=== PATIENT | female | born 1985 | race American Indian/Alaskan Native ===

== ENCOUNTER 2017-01-06 13:44 | Emergency (ER) | payer BC, MEDICAID ==
[2017-01-06 14:36] VITALS: BP 125/79
--- NOTE | 2017-01-06 15:39 | Emergency Department Report ---
Entered by EDGAR WATERMAN, acting as scribe for MICHAEL JOSE PA. - General Chief complaint: Skin/Abscess/Foreign Body Stated complaint: NIPPLE INFECTION Time Seen by Provider: 01/06/17 14:53 Source: patient Mode of arrival: Ambulatory Limitations: No Limitations - History of Present Illness Initial comments: 31 year old female a PMHx of asthma presents to the ED c/o infected bilateral nipple piercings that began 1 week ago. Patient states that she got both nipples pierced in September 2016. Associated symptoms include pain around affected area, swelling, bleeding, pus drainage and fever, but she denies nausea , vomiting, SOB, and abdominal pain. Patient states her highest fever was a 101. Notes applying salt water compressions with some relief. LMP 12/10/2016. NKDA. HERRING complaint: other (infected bilateral nipple piercings) Onset/Timin -: week(s) Tetanus Up to Date: unsure Location: chest (bilateral nipples) Quality: aching Consistency: constant Improves with: none (applied salt water compressions with no relief) Worsens with: none Context: other (bilateral nipples pierced in September 2016) Associated symptoms: denies other symptoms, fever, other (chest pain, swelling, bleeding, and purulent drainage) Treatments Prior to Arrival: other (salt water compressions) - Related Data Previous Rx's Medication Instructions Recorded Last Taken Type HYDROcodone/APAP 5-325 [[place] 1 - 2 each PO Q6HR PRN #14 tablet 11/04/14 Unknown Rx 5-325 mg TAB] metroNIDAZOLE [Flagyl] 500 mg PO QID #40 tablet 11/04/14 Unknown Rx Ketorolac [Toradol] 10 mg PO Q6H PRN #20 tablet 04/18/16 Unknown Rx predniSONE [Deltasone] 60 mg PO QDAY #7 tab 07/28/16 Unknown Rx Cephalexin [Keflex] 500 mg PO QID #20 cap 01/06/17 Unknown Rx traMADol [Ultram 50 MG tab] 50 mg PO Q4HR PRN #14 tablet 01/06/17 Unknown Rx Allergies Allergy/AdvReac Type Severity Reaction Status Date / Time No Known Allergies Allergy Unverified 09/10/13 03:26 Abscess Boil HPI - HPI Chief Complaint: Skin/Abscess/Foreign Body Stated Complaint: NIPPLE INFECTION Time Seen by Provider: 01/06/17 14:53 Duration: 1 Week Location: Chest (bilateral nipples) History: Yes Fever, Yes Pain, Yes Purulent Drainage, No Numbness, No Foreign Body, No Previous History, No Insect Bite Home Medications: Previous Rx's Medication Instructions Recorded Last Taken Type HYDROcodone/APAP 5-325 [[place] 1 - 2 each PO Q6HR PRN #14 tablet 11/04/14 Unknown Rx 5-325 mg TAB] metroNIDAZOLE [Flagyl] 500 mg PO QID #40 tablet 11/04/14 Unknown Rx Ketorolac [Toradol] 10 mg PO Q6H PRN #20 tablet 04/18/16 Unknown Rx predniSONE [Deltasone] 60 mg PO QDAY #7 tab 07/28/16 Unknown Rx Cephalexin [Keflex] 500 mg PO QID #20 cap 01/06/17 Unknown Rx traMADol [Ultram 50 MG tab] 50 mg PO Q4HR PRN #14 tablet 01/06/17 Unknown Rx Allergies/Adverse Reactions: Allergies Allergy/AdvReac Type Severity Reaction Status Date / Time No Known Allergies Allergy Unverified 09/10/13 03:26 ED Review of Systems Comment: All other systems reviewed and negative Constitutional: fever. denies: chills, other (tingling) Respiratory: denies: cough, shortness of breath Cardiovascular: denies: chest pain, palpitations Gastrointestinal: denies: abdominal pain, nausea, vomiting Skin: other (bilateral nipple swelling with bleeding and purulent drainage). denies: rash ED Past Medical Hx - Past Medical History Hx Diabetes: (Being tested for diabetes) Hx Asthma: Yes Additional medical history: Urticaria (unknown etiology). 6 pregnancies with 4 miscarriage - Social History Smoking Status: Never Smoker Substance Use Type: None - Medications Home Medications: Home Medications Medication Instructions Recorded Confirmed Last Taken Type HYDROcodone/APAP 5-325 [[place] 1 - 2 each PO Q6HR PRN #14 tablet 11/04/14 Unknown Rx 5-325 mg TAB] metroNIDAZOLE [Flagyl] 500 mg PO QID #40 tablet 11/04/14 Unknown Rx Ketorolac [Toradol] 10 mg PO Q6H PRN #20 tablet 04/18/16 Unknown Rx predniSONE [Deltasone] 60 mg PO QDAY #7 tab 07/28/16 Unknown Rx Cephalexin [Keflex] 500 mg PO QID #20 cap 01/06/17 Unknown Rx traMADol [Ultram 50 MG tab] 50 mg PO Q4HR PRN #14 tablet 01/06/17 Unknown Rx ED Physical Exam - General Limitations: No Limitations General appearance: alert, in no apparent distress - Head Head exam: Present: atraumatic, normocephalic - Eye Eye exam: Present: normal appearance, EOMI Pupils: Present: normal accommodation - ENT ENT exam: Present: normal exam, mucous membranes moist - Neck Neck exam: Present: normal inspection, full ROM - Respiratory Respiratory exam: Present: normal lung sounds bilaterally. Absent: respiratory distress, wheezes, rales, rhonchi, stridor - Cardiovascular Cardiovascular Exam: Present: regular rate, normal rhythm. Absent: systolic murmur, diastolic murmur, rubs, gallop - GI/Abdominal GI/Abdominal exam: Present: soft. Absent: distended, tenderness, guarding, rebound - Extremities Exam Extremities exam: Present: normal inspection, full ROM - Back Exam Back exam: Present: normal inspection, full ROM - Neurological Exam Neurological exam: Present: alert, oriented X3 - Psychiatric Psychiatric exam: Present: normal affect, normal mood - Skin Skin exam: Present: warm, dry, intact, other (bilateral nipple piercings present with no erythema, cellulitis, and purulent drainage). Absent: rash - Other Other exam information: BREAST: bilateral nipple piercings present with minimal erythema and edema. No surrounding cellulitis or purulent drainage noted. No nipple drainage or bleeding noted. ED Course Vital Signs 01/06/17 14:31 Temperature 98.4 F Pulse Rate 69 Respiratory 18 Rate Blood Pressure 125/79 O2 Sat by Pulse 100 Oximetry ED Medical Decision Making - Lab Data Vital Signs 01/06/17 14:31 Temperature 98.4 F Pulse Rate 69 Respiratory 18 Rate Blood Pressure 125/79 O2 Sat by Pulse 100 Oximetry - Medical Decision Making 31-year-old female presents today with bilateral nipple piercing that seem to be infected. A referral for [facility] has been provided. Patient is in no acute distress at this time. She will be discharged home and is encouraged to follow up with a primary care provider. She will be sent home on Keflex and tramadol and is encouraged to return to the emergency room for any worsening symptoms. ED Disposition Clinical Impression: Infected pierced nipple Disposition: DISCHARGED TO HOME OR SELFCARE Is pt being admited?: No Does the pt Need Aspirin: No Condition: Stable Instructions: Cellulitis (ED) Additional Instructions: Follow-up with primary care provider. Return to the emergency department if symptoms worsen. Prescriptions: Cephalexin [Keflex] 500 mg PO QID #20 cap traMADol [Ultram 50 MG tab] 50 mg PO Q4HR PRN #14 tablet PRN Reason: Pain Referrals: PRIMARY CARE, [Primary Care Provider] - 3-5 Days NANNETTE DIAZ MD [Staff Physician] - 3-5 Days Forms: Work/School Release Form(ED) Time of Disposition: 15:33 This documentation as recorded by the GUEVARA grady JASMINE,accurately reflects the service I personally performed and the decisions made by DAMON lovett NATASHA, PA.
== END 2017-01-06 15:49 | disposition home or self-care (01) ==
LOC: ED 13:44
DX: N61.0 Mastitis without abscess (principal); J45.909 Unspecified asthma, uncomplicated
CPT/HCPCS: 99282

== ENCOUNTER 2017-03-19 10:51 | Emergency (ER) | payer BC ==
[2017-03-19 12:23] LABS: Basophils % (Auto) 0.1 % (0.0-1.8); Hematocrit 35.9 % (30.3-42.9); Hemoglobin 11.6 gm/dl (10.1-14.3); Mean Corpuscular HGB Conc 32 % (30-34); Mean Corpuscular Hemoglobin 27 pg (28-32); Mean Corpuscular Volume 83 fl (79-97); Platelet Count 267 K/mm3 (140-440); Red Blood Count 4.32 M/mm3 (3.65-5.03); Red Cell Distribution Width 14.6 % (13.2-15.2); White Blood Count 6.4 K/mm3 (4.5-11.0)
[2017-03-19 13:01] LABS: Anion Gap 16 mmol/L; BUN/Creatinine Ratio 8.75; Blood Urea Nitrogen 7 mg/dL (7-17); Calcium 9.4 mg/dL (8.4-10.2); Carbon Dioxide 22 mmol/L (22-30); Chloride 104.7 mmol/L (98-107); Glucose 119 mg/dL (65-100); Potassium 4.1 mmol/L (3.6-5.0); Sodium 139 mmol/L (137-145)
[2017-03-19] MEDS ORDERED: PEPCID PO ONE (16:32)
[2017-03-19] MEDS ORDERED: ALUM-MAG HYDROX-SIMETH 200-200-20MG/5ML PO ONE (16:32)
[2017-03-19] MEDS ORDERED: TORADOL IM ONE (16:32)
--- NOTE | 2017-03-19 16:34 | Emergency Department Report ---
ED Chest Pain HPI - General Chief Complaint: Chest Pain Stated Complaint: SOB NAUSEA LIGHT HEADED Time Seen by Provider: 03/19/17 16:21 Source: patient, RN notes reviewed, old records reviewed Mode of arrival: Ambulatory Limitations: No Limitations - History of Present Illness Initial Comments: This is a 31-year-old female. I have evaluated her in the past. She denies chronic medical conditions. She reports that she is not . The patient presents to the ER with 3 days of subxiphoid and substernal chest pressure and pain. The pain is achy and sharp. It does not radiate to the back , arms and neck. It is associated with nausea and shortness of breath. The patient also describes lightheadedness. There is no vomiting, there is no diaphoresis. There is no leg pain. There is no leg swelling. No recent trips greater than 4 hours. No recent hospital admissions. No hemoptysis or hematemesis. The shortness of breath increases when she lays in a supine position. It is not pleuritic. The patient reports that she has an Implanon control patch in her left upper extremity. MD Complaint: chest pain -: Gradual, days(s) Pain Location: substernal Pain Radiation: none Severity: moderate Quality: aching Consistency: intermittent Improves With: rest Worsens With: palpation re: nausea, dyspnea Other Symptoms: denies: cough Treatments Prior to Arrival: none Aspirin use within the Past 7 Days: (0) No - Related Data On Oral Contraceptives: No Previous Rx's Medication Instructions Recorded Last Taken Type HYDROcodone/APAP 5-325 [[place] 1 - 2 each PO Q6HR PRN #14 tablet 11/04/14 Unknown Rx 5-325 mg TAB] metroNIDAZOLE [Flagyl] 500 mg PO QID #40 tablet 11/04/14 Unknown Rx Ketorolac [Toradol] 10 mg PO Q6H PRN #20 tablet 04/18/16 Unknown Rx predniSONE [Deltasone] 60 mg PO QDAY #7 tab 07/28/16 Unknown Rx Cephalexin [Keflex] 500 mg PO QID #20 cap 01/06/17 Unknown Rx traMADol [Ultram 50 MG tab] 50 mg PO Q4HR PRN #14 tablet 01/06/17 Unknown Rx EPINEPHrine [Epipen 2-Abran] 0.3 mg IM DAILY PRN #2 ml 03/19/17 Unknown Rx Ibuprofen [Motrin] 600 mg PO Q8H PRN #30 tablet 03/19/17 Unknown Rx Allergies Allergy/AdvReac Type Severity Reaction Status Date / Time No Known Allergies Allergy Verified 03/19/17 11:36 Heart Score - HEART Score History: Moderately suspicious EKG: Normal Age: < 45 Risk factors: No known risk factors Troponin: < normal limit HEART Score: 1 - Critical Actions Critical Actions: 0-3 pts:0.9-1.7%risk of adverse cardiac event.Candidate for discharge ED Review of Systems ROS: Stated complaint: SOB NAUSEA LIGHT HEADED Other details as noted in HPI Constitutional: denies: fever, malaise Eyes: denies: vision change ENT: denies: epistaxis Respiratory: shortness of breath Cardiovascular: chest pain Gastrointestinal: denies: vomiting Genitourinary: as per HPI. denies: dysuria Musculoskeletal: as per HPI. denies: back pain Skin: denies: lesions Neurological: denies: headache, weakness Psychiatric: denies: anxiety ED Past Medical Hx - Past Medical History Hx Diabetes: (Being tested for diabetes) Hx Asthma: Yes Additional medical history: Urticaria (unknown etiology). 6 pregnancies with 4 miscarriage - Social History Smoking Status: Never Smoker Substance Use Type: None - Medications Home Medications: Home Medications Medication Instructions Recorded Confirmed Last Taken Type HYDROcodone/APAP 5-325 [[place] 1 - 2 each PO Q6HR PRN #14 tablet 11/04/14 Unknown Rx 5-325 mg TAB] metroNIDAZOLE [Flagyl] 500 mg PO QID #40 tablet 11/04/14 Unknown Rx Ketorolac [Toradol] 10 mg PO Q6H PRN #20 tablet 04/18/16 Unknown Rx predniSONE [Deltasone] 60 mg PO QDAY #7 tab 07/28/16 Unknown Rx Cephalexin [Keflex] 500 mg PO QID #20 cap 01/06/17 Unknown Rx traMADol [Ultram 50 MG tab] 50 mg PO Q4HR PRN #14 tablet 01/06/17 Unknown Rx EPINEPHrine [Epipen 2-Abran] 0.3 mg IM DAILY PRN #2 ml 03/19/17 Unknown Rx Ibuprofen [Motrin] 600 mg PO Q8H PRN #30 tablet 03/19/17 Unknown Rx ED Physical Exam - General Limitations: No Limitations General appearance: alert, in no apparent distress - Head Head exam: Present: atraumatic, normocephalic - Eye Eye exam: Present: normal appearance, EOMI. Absent: nystagmus - ENT ENT exam: Present: normal exam, normal orophraynx, mucous membranes moist, normal external ear exam - Neck Neck exam: Present: normal inspection, full ROM. Absent: tenderness, meningismus - Respiratory Respiratory exam: Present: normal lung sounds bilaterally, chest wall tenderness , other (there is reproducible anterior chest wall tenderness. The bilateral breast exam is within normal limits and they are nontender. During the breast examination, I am escorted by ER nurse Mercedes Pemberton). Absent: respiratory distress, wheezes, rales, rhonchi, stridor - Cardiovascular Cardiovascular Exam: Present: regular rate, normal rhythm, normal heart sounds. Absent: systolic murmur, diastolic murmur, rubs, gallop - GI/Abdominal GI/Abdominal exam: Present: soft, normal bowel sounds. Absent: distended, tenderness, guarding, rebound, rigid, pulsatile mass - Extremities Exam Extremities exam: Present: normal inspection, full ROM, normal capillary refill. Absent: tenderness, pedal edema, joint swelling, calf tenderness - Back Exam Back exam: Present: normal inspection, full ROM. Absent: tenderness, CVA tenderness (R), CVA tenderness (L), muscle spasm, paraspinal tenderness, vertebral tenderness - Neurological Exam Neurological exam: Present: alert, oriented X3, normal gait, other (Extraocular movements intact. Tongue midline. No facial droop. Facial sensation intact to light touch in the V1, V2, V3 distribution bilaterally. 5 and 5 strength in 4 extremities.. Sensation is intact to light touch in 4 extremities.). Absent : motor sensory deficit - Psychiatric Psychiatric exam: Present: normal affect, normal mood - Skin Skin exam: Present: warm, dry, intact, normal color. Absent: rash ED Course Vital Signs 03/19/17 03/19/17 03/19/17 11:36 17:07 17:56 Temperature 98.7 F Pulse Rate 70 67 Respiratory 18 20 18 Rate Blood Pressure 131/91 Blood Pressure 147/81 [Left] O2 Sat by Pulse 100 100 Oximetry - Reevaluation(s) Reevaluation #1: 03/19/17 17:48 Differential diagnosis: Pneumonia, pericarditis, pleural effusion, pericardial effusion, pulmonary embolus, acute coronary syndrome, costochondritis Assessment and plan: 31-year-old female with chest pain that is reproducible but also associated with shortness of breath, and an indwelling Implanon patch. Low risk by HERBERTH score, low risk by heart score, however d-dimer is elevated, in spite of patient being perc negative, therefore, a CT scan of the chest is ordered to exclude pulmonary embolus. EKG is unchanged 2, and appears to be unchanged from baseline. Assuming negative CAT scan, I believe the patient is adequate to follow-up with an outpatient primary care doctor or audio installer for evaluation of her chest pain. She did feel improved after pain medication was administered. Reevaluation #2: 03/19/17 18:10 CT scan of the chest is negative for pulmonary embolus, but the pulmonary trunk is enlarged, suggesting pulmonary hypertension. Patient also found to be slightly hypertensive. The patient will be referred to outpatient cardiology. Return precautions are reviewed. Of note, the patient also described that she felt like her face was swollen prior to arrival, but on my evaluation in the ER, there is no facial swelling, redness, pus or streaking, there is no stridor or dysphonia, and her skin exam is unremarkable without any evidence of rash or urticaria. Therefore, I don't believe she requires Benadryl or Pepcid at this time, but I will refill her epinephrine pen prescription. 03/19/17 18:10 03/19/17 18:11 HERBERTH score - Herberth Score Age > 65: (0) No Aspirin use within the Past 7 Days: (0) No 3 or more CAD Risk Factors: (0) No 2 or more Angina events in past 24 hrs: (0) No Known CAD with more than 50% Stenosis: (0) No Elevated Cardiac Markers: (0) No ST Deviation Greater than 0.5mm: (0) No HERBERTH Score: 0 ED Medical Decision Making - Lab Data Result diagrams: 03/19/17 11:56 03/19/17 11:56 Vital Signs (72 hours) 03/19/17 03/19/17 11:36 17:07 Temperature 98.7 F Pulse Rate 70 Respiratory 18 20 Rate Blood Pressure 131/91 O2 Sat by Pulse 100 Oximetry Lab Results 03/19/17 03/19/17 03/19/17 Range/Units 11:56 11:56 14:46 WBC 6.4 (4.5-11.0) K/mm3 RBC 4.32 (3.65-5.03) M/mm3 Hgb 11.6 (10.1-14.3) gm/dl Hct 35.9 (30.3-42.9) % MCV 83 (79-97) fl MCH 27 L (28-32) pg MCHC 32 (30-34) % RDW 14.6 (13.2-15.2) % Plt Count 267 (140-440) K/mm3 Lymph % (Auto) 26.2 (13.4-35.0) % [place] % (Auto) 5.1 (0.0-7.3) % Eos % (Auto) 0.0 (0.0-4.3) % Baso % (Auto) 0.1 (0.0-1.8) % Lymph # 1.7 (1.2-5.4) K/mm3 [place] # 0.3 (0.0-0.8) K/mm3 Eos # 0.0 (0.0-0.4) K/mm3 Baso # 0.0 (0.0-0.1) K/mm3 Seg Neutrophils % 68.6 (40.0-70.0) % Seg Neutrophils # 4.4 (1.8-7.7) K/mm3 PT (12.2-14.9) Sec. INR (0.87-1.13) D-Dimer (0-234) ng/mlDDU Sodium 139 (137-145) mmol/L Potassium 4.1 (3.6-5.0) mmol/L Chloride 104.7 (98-107) mmol/L Carbon Dioxide 22 (22-30) mmol/L Anion Gap 16 mmol/L BUN 7 (7-17) mg/dL Creatinine 0.8 (0.7-1.2) mg/dL Estimated GFR > 60 ml/min BUN/Creatinine Ratio 8.75 % Glucose 119 H (65-100) mg/dL Calcium 9.4 (8.4-10.2) mg/dL Troponin T < 0.010 < 0.010 (0.00-0.029) ng/mL HCG, Quant (0-4) mIU/mL 0703/19/17 03/19/17 Range/Units 16:42 16:42 16:42 WBC (4.5-11.0) K/mm3 RBC (3.65-5.03) M/mm3 Hgb (10.1-14.3) gm/dl Hct (30.3-42.9) % MCV (79-97) fl MCH (28-32) pg MCHC (30-34) % RDW (13.2-15.2) % Plt Count (140-440) K/mm3 Lymph % (Auto) (13.4-35.0) % [place] % (Auto) (0.0-7.3) % Eos % (Auto) (0.0-4.3) % Baso % (Auto) (0.0-1.8) % Lymph # (1.2-5.4) K/mm3 [place] # (0.0-0.8) K/mm3 Eos # (0.0-0.4) K/mm3 Baso # (0.0-0.1) K/mm3 Seg Neutrophils % (40.0-70.0) % Seg Neutrophils # (1.8-7.7) K/mm3 PT 12.9 (12.2-14.9) Sec. INR 0.98 (0.87-1.13) D-Dimer 982.33 H (0-234) ng/mlDDU Sodium (137-145) mmol/L Potassium (3.6-5.0) mmol/L Chloride (98-107) mmol/L Carbon Dioxide (22-30) mmol/L Anion Gap mmol/L BUN (7-17) mg/dL Creatinine (0.7-1.2) mg/dL Estimated GFR ml/min BUN/Creatinine Ratio % Glucose (65-100) mg/dL Calcium (8.4-10.2) mg/dL Troponin T < 0.010 (0.00-0.029) ng/mL HCG, Quant < 2 (0-4) mIU/mL - EKG Data EKG shows normal: sinus rhythm Rate: normal - EKG Data When compared to previous EKG there are: no significant change Interpretation: no acute changes 03/19/17 17:52 EKG #1 demonstrates normal sinus, 72 bpm, QTC within normal limits, normal axis , normal intervals, T-wave inversion in lead 3, abnormal EKG, not morphologically consistent with STEMI, appears unchanged when compared to prior from 07/28/2016. EKG #2 demonstrates normal sinus bradycardia, 58 bpm, normal intervals, normal axis, persistent T wave inversion in lead 3, not morphologically consistent with systemic - Radiology Data Radiology results: report reviewed, image reviewed interpreted by me: X-ray of the chest is negative for acute disease Critical care attestation.: If time is entered above; I have spent that time in minutes in the direct care of this critically ill patient, excluding procedure time. ED Disposition Clinical Impression: Chest pain Disposition: DC-01 TO HOME OR SELFCARE Is pt being admited?: No Does the pt Need Aspirin: No Condition: Stable Instructions: Chest Pain (ED) Additional Instructions: Take the ibuprofen as needed for pain. Use the epinephrine pen and only if you develop inability to speak, inability to breathe. Laboratory studies were unremarkable. CT scan of the chest suggested that the blood pressure in the lungs might be elevated, a condition known as pulmonary hypertension. Please follow-up with either the outpatient audio installer within the next week. Return to the ER right away with new pain, worsened pain, migration of pain, fevers, chills, confusion, chest pain, shortness of breath, intractable nausea or vomiting, inability to tolerate liquid feeds. Prescriptions: EPINEPHrine [Epipen 2-Abran] 0.3 mg IM DAILY PRN #2 ml PRN Reason: Allergic Reaction Ibuprofen [Motrin] 600 mg PO Q8H PRN #30 tablet PRN Reason: Pain Referrals: PRIMARY CARE, [Primary Care Provider] - 3-5 Days HANSEL CROW MD [Staff Physician] - 3-5 Days ÁNGEL TIMMONS MD [Staff Physician] - 3-5 Days
[2017-03-19 17:13] LABS: INR 0.98 (0.87-1.13)
[2017-03-19] MEDS ORDERED: NACL ONE (17:19)
[2017-03-19] MEDS ORDERED: CARAFATE PO ONE (17:30)
[2017-03-19 17:57] VITALS: BP 147/81
--- NOTE | 2017-03-19 18:04 | Cat Scan Report ---
FINAL REPORT EXAM: CT ANGIO CHEST HISTORY: cp sob TECHNIQUE: CT chest CT angiogram with reconstructions PRIORS: None. FINDINGS: There is no evidence of filling defect within the central pulmonary vasculature to suggest the presence of acute pulmonary embolus. No evidence of mediastinal pathologic lymph node enlargement There is enlargement of the pulmonary trunk which measures 3.5 centimeters in transverse diameter. The thoracic aorta is normal in caliber No focal pulmonary infiltrate identified. No pleural fluid collection seen. No acute pulmonary abnormality noted. Visualized portion of the upper abdomen demonstrates no acute change. IMPRESSION: Enlargement of the pulmonary trunk which may reflect underlying pulmonary hypertension No evidence for acute pulmonary embolus
--- NOTE | 2017-03-20 10:13 | XRay Report ---
ROUTINE CHEST, TWO VIEWS: HISTORY: chest pain. The trachea, heart, mediastinal contour, lung morfin and bony thorax are unremarkable. IMPRESSION: Unremarkable chest x-ray.
== END 2017-03-19 18:30 | disposition home or self-care (01) ==
LOC: ED 10:51
DX: R07.9 Chest pain, unspecified (principal); J45.909 Unspecified asthma, uncomplicated
CPT/HCPCS: 36415; 71020; 71275; 80048; 84484; 84702; 85025; 85379; 85610; 93005; 93010; 96372; 99285; J1885; Q9967

== ENCOUNTER 2017-03-24 16:48 | Emergency (ER) | payer BC | END 2017-03-24 17:06 | disposition left against medical advice (07) | LOC: ED 16:48 | DX: R06.02 Shortness of breath (principal); R11.0 Nausea; R07.9 Chest pain, unspecified; Z53.21 Procedure and treatment not carried out due to patient leaving prior to being seen by health care provider ==

== ENCOUNTER 2018-04-23 09:56 | Emergency (ER) | payer SELFPAY ==
[2018-04-23] MEDS ORDERED: ADRENALIN SUB-Q ONE (10:12)
[2018-04-23] MEDS ORDERED: NACL 0.9% 1000 ML 1,000 ML IV ONE (10:12)
[2018-04-23] MEDS ORDERED: SOLU-Medrol IV ONE (10:13)
[2018-04-23] MEDS ORDERED: BENADRYL IV ONE (10:14)
[2018-04-23] MEDS ORDERED: PEPCID IV ONE (10:14)
--- NOTE | 2018-04-23 10:19 | Emergency Department Report ---
ED Allergic Reaction HPI - General Chief complaint: Allergic Reaction Stated complaint: ANAPALAXISIS FLARE UP Time Seen by Provider: 04/23/18 10:09 Source: patient Mode of arrival: Ambulatory Limitations: No Limitations - History of Present Illness Initial Comments: Patient is 32 years old female with history of anaphylactic shock 3-4 years ago for which she required intubation. Patient presented to the ER complaining of the same symptoms that started last times with hives and swelling starting from the lower part of the body and extending caudally. Patient stated that she started having swelling in her lips and tongue but she denied any difficulty breathing or difficulty swallowing. MD Complaint: allergic reaction, hives, facial swelling -: This morning Exposure: unknown Symptoms: rash, itching, facial swelling, lip swelling Severity: moderate Treatment Prior to Arrival: none Previous Allergy History: prior ED visit(s), anaphylaxis, angioedema, intubation - Related Data Previous Rx's Medication Instructions Recorded Last Taken Type HYDROcodone/APAP 5-325 [[place] 1 - 2 each PO Q6HR PRN #14 tablet 11/04/14 Unknown Rx 5-325 mg TAB] metroNIDAZOLE [Flagyl] 500 mg PO QID #40 tablet 11/04/14 Unknown Rx Ketorolac [Toradol] 10 mg PO Q6H PRN #20 tablet 04/18/16 Unknown Rx predniSONE [Deltasone] 60 mg PO QDAY #7 tab 07/28/16 Unknown Rx cephALEXin [Keflex] 500 mg PO QID #20 cap 01/06/17 Unknown Rx traMADol [Ultram 50 MG tab] 50 mg PO Q4HR PRN #14 tablet 01/06/17 Unknown Rx EPINEPHrine [Epipen 2-Abran] 0.3 mg IM DAILY PRN #2 ml 03/19/17 Unknown Rx Ibuprofen [Motrin] 600 mg PO Q8H PRN #30 tablet 03/19/17 Unknown Rx Allergies Allergy/AdvReac Type Severity Reaction Status Date / Time No Known Allergies Allergy Verified 04/23/18 10:03 ED Review of Systems ROS: Stated complaint: ANAPALAXISIS FLARE UP Other details as noted in HPI Comment: All other systems reviewed and negative Constitutional: denies: chills, fever ENT: other (mild lower lip swelling). denies: ear pain, throat pain Respiratory: denies: cough, shortness of breath, SOB at rest, wheezing Cardiovascular: denies: chest pain, palpitations, dyspnea on exertion, orthopnea Gastrointestinal: denies: abdominal pain, nausea, vomiting Neurological: denies: headache, weakness, numbness, paresthesias, confusion, abnormal gait ED Past Medical Hx - Past Medical History Hx Diabetes: (Being tested for diabetes) Hx Asthma: Yes Additional medical history: Urticaria (unknown etiology). 6 pregnancies with 4 miscarriage - Social History Smoking Status: Never Smoker Substance Use Type: None - Medications Home Medications: Home Medications Medication Instructions Recorded Confirmed Last Taken Type HYDROcodone/APAP 5-325 [[place] 1 - 2 each PO Q6HR PRN #14 tablet 11/04/14 Unknown Rx 5-325 mg TAB] metroNIDAZOLE [Flagyl] 500 mg PO QID #40 tablet 11/04/14 Unknown Rx Ketorolac [Toradol] 10 mg PO Q6H PRN #20 tablet 04/18/16 Unknown Rx predniSONE [Deltasone] 60 mg PO QDAY #7 tab 07/28/16 Unknown Rx cephALEXin [Keflex] 500 mg PO QID #20 cap 01/06/17 Unknown Rx traMADol [Ultram 50 MG tab] 50 mg PO Q4HR PRN #14 tablet 01/06/17 Unknown Rx EPINEPHrine [Epipen 2-Abran] 0.3 mg IM DAILY PRN #2 ml 03/19/17 Unknown Rx Ibuprofen [Motrin] 600 mg PO Q8H PRN #30 tablet 03/19/17 Unknown Rx ED Physical Exam - General Limitations: No Limitations General appearance: alert, in no apparent distress, anxious - Head Head exam: Present: atraumatic, normocephalic, normal inspection - Eye Eye exam: Present: normal appearance, PERRL - ENT ENT exam: Present: mucous membranes moist, other (mild lower lip swelling) - Neck Neck exam: Present: normal inspection, full ROM. Absent: tenderness, meningismus, lymphadenopathy, thyromegaly - Respiratory Respiratory exam: Present: normal lung sounds bilaterally. Absent: respiratory distress, wheezes, rales, rhonchi, stridor, chest wall tenderness, accessory muscle use, decreased breath sounds, prolonged expiratory - Cardiovascular Cardiovascular Exam: Present: regular rate, normal rhythm, normal heart sounds - GI/Abdominal GI/Abdominal exam: Present: soft, normal bowel sounds. Absent: distended, tenderness, guarding, rebound, rigid, organomegaly, mass, bruit, pulsatile mass , hernia - Extremities Exam Extremities exam: Present: normal inspection, full ROM, normal capillary refill. Absent: tenderness, pedal edema, joint swelling, calf tenderness - Back Exam Back exam: Present: normal inspection, full ROM, rash noted. Absent: tenderness , CVA tenderness (R), CVA tenderness (L), muscle spasm, paraspinal tenderness, vertebral tenderness - Neurological Exam Neurological exam: Present: alert, oriented X3, CN II-XII intact, normal gait, reflexes normal - Skin Skin exam: Present: warm, intact, rash, erythema, urticaria ED Course Vital Signs 04/23/18 04/23/18 04/23/18 10:03 10:31 11:41 Temperature 98.7 F 98.1 F Pulse Rate 91 H 101 H 77 Respiratory 17 22 16 Rate Blood Pressure 154/94 Blood Pressure 117/72 [Right] O2 Sat by Pulse 99 100 100 Oximetry ED Medical Decision Making - Lab Data Result diagrams: 04/23/18 10:48 04/23/18 10:48 - Medical Decision Making I discussed the patient with Dr. Su, he agreed to admit the patient to medical service. Critical Care Time: Yes Critical care time in (mins) excluding proc time.: 30 Critical care attestation.: If time is entered above; I have spent that time in minutes in the direct care of this critically ill patient, excluding procedure time. ED Disposition Clinical Impression: Allergic reaction Disposition: OP ADMIT IP TO THIS HOSP Is pt being admited?: Yes Condition: Stable Referrals: PRIMARY CARE, [Primary Care Provider] - 3-5 Days
[2018-04-23 10:59] LABS: Basophils % (Auto) 0.1 % (0.0-1.8); Eosinophils % (Auto) 0.1 % (0.0-4.3); Hematocrit 35.2 % (30.3-42.9); Hemoglobin 11.3 gm/dl (10.1-14.3); Lymphocytes % (Auto) 28.2 % (13.4-35.0); Mean Corpuscular HGB Conc 32 % (30-34); Mean Corpuscular Hemoglobin 27 pg (28-32); Mean Corpuscular Volume 85 fl (79-97); Monocytes # (Auto) 0.5 K/mm3 (0.0-0.8); Monocytes % (Auto) 6.6 % (0.0-7.3); Platelet Count 312 K/mm3 (140-440); Red Blood Count 4.16 M/mm3 (3.65-5.03); Red Cell Distribution Width 15.2 % (13.2-15.2)
[2018-04-23 11:28] LABS: Alanine Aminotransferase 8 units/L (7-56); Albumin 3.9 g/dL (3.9-5); BUN/Creatinine Ratio 12; Blood Urea Nitrogen 7 mg/dL (7-17); Calcium 8.8 mg/dL (8.4-10.2); Hemolysis Index 3
--- NOTE | 2018-04-23 14:25 | History and Physical Report ---
History of Present Illness Chief complaint: I had a rash on my legs, but its better now History of present illness: 32 YO Female with Asthma, Atopic Reaction NOS presents to ED for evaluation. Pt seen and evaluated in ED and treated with EPI, as well as steroid therapy with normalization of symptoms. Pt medically optimized and back to usual state of health. Pt counseled. Pt instructed to returned to ED if persistent or worsening symptoms. Pt discharged home and instructed to f/u pcp as well as Allergy Medicine. Past History Past Medical History: other Past Surgical History: No surgical history, Other (reviewed) Social history: single. denies: smoking, alcohol abuse, prescription drug abuse Family history: no significant family history (reviewed) Medications and Allergies Allergies Allergy/AdvReac Type Severity Reaction Status Date / Time No Known Allergies Allergy Verified 04/23/18 10:03 Home Medications Medication Instructions Recorded Confirmed Last Taken Type HYDROcodone/APAP 5-325 [[place] 1 - 2 each PO Q6HR PRN #14 tablet 11/04/14 Unknown Rx 5-325 mg TAB] metroNIDAZOLE [Flagyl] 500 mg PO QID #40 tablet 11/04/14 Unknown Rx Ketorolac [Toradol] 10 mg PO Q6H PRN #20 tablet 04/18/16 Unknown Rx predniSONE [Deltasone] 60 mg PO QDAY #7 tab 07/28/16 Unknown Rx cephALEXin [Keflex] 500 mg PO QID #20 cap 01/06/17 Unknown Rx traMADol [Ultram 50 MG tab] 50 mg PO Q4HR PRN #14 tablet 01/06/17 Unknown Rx Ibuprofen [Motrin] 600 mg PO Q8H PRN #30 tablet 03/19/17 Unknown Rx EPINEPHrine [Epipen 2-Abran] 0.3 mg IM DAILY PRN #2 ml 04/23/18 Unknown Rx Prednisone [predniSONE 10 mg 10 mg PO .TAPER #1 tab.ds.pk 04/23/18 Unknown Rx (6-Day Pack, 21 Tabs)] Review of Systems Constitutional: no weight loss, no weight gain, no fever, no chills, no sweats Ears, nose, mouth and throat: no ear pain, no ear discharge, no tinnitis, no decreased hearing, no nose pain, no nasal congestion, no nasal discharge, no sinus pressure Breasts: no change in shape, no swelling Cardiovascular: no chest pain, no orthopnea, no palpitations, no rapid/ irregular heart beat, no edema, no syncope, no lightheadedness Respiratory: no cough, no cough with sputum, no excessive sputum, no hemoptysis , no shortness of breath, no dyspnea on exertion Gastrointestinal: no abdominal pain, no nausea, no vomiting, no diarrhea, no change in bowel habits Genitourinary Female: no pelvic pain, no flank pain, no menorrhagia, no dysuria , no urinary frequency, no urgency Rectal: no pain, no incontinence, no bleeding Musculoskeletal: no neck stiffness, no neck pain, no shooting arm pain, no arm numbness/tingling, no low back pain, no shooting leg pain, no leg numbness/ tingling, no redness of joints Integumentary: rash, no pruritis, no redness, no sores, no wounds, no jaundice, no boils Neurological: no head injury, no transient paralysis, no paralysis, no weakness , no parathesias, no numbness, no tingling, no seizures, no syncope Psychiatric: no anxiety, no memory loss, no change in sleep habits, no sleep disturbances, no insomnia, no hypersomnia Endocrine: no cold intolerance, no heat intolerance, no polyphagia, no excessive thirst, no polydipsia, no polyuria, no nocturia Hematologic/Lymphatic: no easy bruising, no easy bleeding, no lymphadenopathy, no lymphedema Allergic/Immunologic: urticaria, no allergic rhinitis, no wheezing, no persistent infections, no anaphylaxis, no angioedema, no gluten intolerance Exam - Constitutional Vitals: Temp Pulse Resp BP Pulse Ox 98.1 F 72 16 111/72 100 04/23/18 11:41 04/23/18 13:37 04/23/18 13:37 04/23/18 13:37 04/23/18 13:37 General appearance: Present: no acute distress, well-nourished - EENT Eyes: Present: PERRL ENT: hearing intact, clear oral mucosa - Neck Neck: Present: supple, normal ROM - Respiratory Respiratory effort: normal Respiratory: bilateral: CTA - Cardiovascular Heart Sounds: Present: S1 & S2. Absent: rub, click - Extremities Extremities: pulses symmetrical, No edema Peripheral Pulses: within normal limits - Abdominal General gastrointestinal: Present: soft, non-tender, non-distended, normal bowel sounds Female genitourinary: Present: normal - Integumentary Integumentary: Present: clear, warm, dry - Musculoskeletal Musculoskeletal: gait normal, strength equal bilaterally - Psychiatric Psychiatric: appropriate mood/affect, intact judgment & insight - Neurologic Neurologic: CNII-XII intact, moves all extremities Results - Labs CBC & Chem 7: 04/23/18 10:48 04/23/18 10:48 Labs: Abnormal lab results 04/23/18 04/23/18 Range/Units 10:48 10:48 MCH 27 L (28-32) pg Creatinine 0.6 L (0.7-1.2) mg/dL Glucose 141 H (65-100) mg/dL Assessment and Plan - Patient Problems (1) Allergic reaction Current Visit: Yes Status: Acute Qualifiers: Encounter type: initial encounter Qualified Code(s): T78.40XA - Allergy, unspecified, initial encounter Plan to address problem: Pt treated with Epi, Solumedrol with resolution of rash. Pt discharged home and instructed to f/u pcp and Allergy medicine.
[2018-04-23 15:30] VITALS: BP 126/77
== END 2018-04-23 15:29 | disposition admitted as inpatient to this hospital (09) ==
LOC: ED 09:56
DX: R22.0 Localized swelling, mass and lump, head (principal); T78.40XA Allergy, unspecified, initial encounter; X58.XXXA Exposure to other specified factors, initial encounter; J45.909 Unspecified asthma, uncomplicated
CPT/HCPCS: 36415; 80053; 85025; 96372; 96374; 96375; 99291; J0171; J1200; J2930; J7030

== ENCOUNTER 2020-12-23 05:50 | Day surgery (SDC) | payer OTHER, SELFPAY ==
[2020-12-16 10:13] LABS: Hematocrit 32.4 % (30.3-42.9); Hemoglobin 10.9 gm/dl (10.1-14.3); Mean Corpuscular HGB Conc 34 % (30-34); Mean Corpuscular Volume 84 fl (79-97); Platelet Count 343 K/mm3 (140-440); Red Blood Count 3.84 M/mm3 (3.65-5.03); Red Cell Distribution Width 15.4 % (13.2-15.2)
--- NOTE | 2020-12-22 17:25 | History and Physical Report ---
History of Present Illness Date of examination: 12/17/20 Chief complaint: Excessive and frequent menstruation and abnormally thickened endometrium History of present illness: Past History : 7 Term Births: 0 Premature Births: 2 Living Children: 1 Para: 2 Mult. Births: 0 Prev : 0 Aborta: 5 Elect. Ab: 0 Spont. Ab: 5 Ectopics: 0 # 1 Delivery date: 1998 Weeks Gestation: 7mos Delivery type: Delivery location: [facility] Comments: IUFD # 2 Delivery date: 12/14/2007 Weeks Gestation: 15-16 Delivery type: SAB Delivery location: [facility] Comments: D&C, presented to ER w/ cord hanging from vagina, "miscarried" in toilet, retained POCs # 3 Delivery date: 06/10/2008 Weeks Gestation: 18 Delivery type: SAB Delivery location: [facility] Comments: D&C, 06/09-?"gush" of fld, 06/10"delivered in toilet" D&C for retained POCs # 4 Delivery date: 05/21/2009 Weeks Gestation: 25+5 Delivery type: Vaginal Anesthesia type: none Delivery location: [facility] Infant Sex: male Name: Boom Comments: Cerclage placed PTD, left AMA 05/20, ROM # 5 Delivery date: 2015 Weeks Gestation: 10 Delivery type: SAB # 6 Delivery date: 2014 Weeks Gestation: 10 Delivery type: SAB # 7 Delivery date: 04/12/2020 Weeks Gestation: 6 Delivery type: SAB Comments: No D&C done [employer] History Uterine Surgery (not C/S): positive, D&C x2 Operations: D&C: (2007) Cervical cerclage (2008) Anesthesia Complications: negative Abnormal PAP: negative Uterine Anomaly: positive fibroids CONSUELO Exposure: negative Infertility: negative Infection History HIV Risk Eval: no Personal hx. of genital herpes: no Hx of STD: chlamydia, GC,Trich Current Allergies: No known allergies Past Medical History: Reviewed history from 09/25/2020 and no changes required: Asthma Fibroids Anemia Ovarian Cysts Past Surgical History: Reviewed history from 10/19/2018 and no changes required: D&C: (2007) Cervical cerclage (2008) Family History Summary: Reviewed history Last on 02/11/2020 and no changes required:12/22/2020 Other Family Member - Has Family History of Ovarian Cancer - Entered On: 10/19/19 19 Other Family Member - Has No Family History of Brain Cancer - Entered On: 10/19/2018 Other Family Member - Has Family History Breast Cancer - Entered On: 10/19/2018 Other Family Member - Has Family History of Prostate Cancer - Entered On: 10/19/2018 Other Family Member - Has Family History of Diabetes - Entered On: 10/19/2018 General Comments - FH: No Family History of DVT/PE on OCP Social History: Reviewed history from 10/19/2018 and no changes required: Patient is single Marital Status: Single Children: Occupation: hr receptionist Smoking History: Patient has never smoked. Risk Factors: Smoked Tobacco Use: Never smoker Smokeless Tobacco Use: Never Passive smoke exposure: no Drug use: no HIV high-risk behavior: no Alcohol use: no Exercise: yes Seatbelt use: 100 % Previous Tobacco Use: Signed On - 11/11/2020 Smoked Tobacco Use: Never smoker Smokeless Tobacco Use: Never Passive smoke exposure: no Drug use: no HIV high-risk behavior: no Caffeine use: 0 drinks per day Previous Alcohol Use: Signed On - 11/11/2020 Alcohol use: no Exercise: yes Times per week: 4 Type of Exercise: walking Seatbelt use: 100 % Colonoscopy History: Date of Last Colonoscopy: 11/03/2009 PAP Smear History: Date of Last PAP Smear: 02/11/2020 Laboratory Results [place]/LEVAR Source: vagina WM: rare WBCs, Clue Cells absent, Yeast absent, Trichomonas absent Physical Exam Appearance: well developed, well nourished, no acute distress Other Exams Lungs: no rales, rhonchi, or wheezes Heart: S1, S2, no murmur, rub, or gallop Genitourinary Exam Uterus: deferred for EUA Impression & Recommendations: Problem # 1: Excessive and frequent menstruation (ICD-626.2) ([id number]) Bleeding has been contolled with JAIME's however she desires to proceed with hysteroscopy D&C to excessive abnormall y thickened endometrium Consent reviewed and signed . Possible laparoscopy or laparotomy explained to patient. The risks and alternatives for this surgery were reviewed with the patient. She was informed of possible bleeding, infection, injury to bowel, bladder, ureters or other adjacent organs, uterine perforation or development of uterine adhesions. The patient was instructed/informed the following: The normal length of hospital stay for this procedure. Nothing to eat or drink after midnight the evening prior to surgery. Infection precautions reviewed, patient to call for any signs or symptoms of infection. The usual discomforts associated with this procedure were detailed. Proper use of pain medicines was reviewed. Patient was given ample opportunity to have all her questions answered before signing informed consent. Problem # 2: Endometrium thickened (ICD-793.5) ([id number]) Medications and Allergies Allergies Allergy/AdvReac Type Severity Reaction Status Date / Time No Known Allergies Allergy Verified 04/23/18 10:03 Home Medications Medication Instructions Recorded Confirmed Last Taken Type Lactobacillus Acidophilus 1 each PO QDAY 12/15/20 12/15/20 Unknown History [Acidophilus Probiotic] Levonorgest/Eth.estradiol/Iron 1 each PO QDAY 12/15/20 12/15/20 Unknown History [Balcoltra Tablet] [place]-3 Fatty Acids/Fish Oil [Fish 1,000 mg PO QDAY 12/15/20 12/15/20 Unknown History Oil] Phentermine HCl 37.5 mg PO QDAY 12/15/20 12/15/20 Unknown History Exam Vital Signs Temp Pulse Resp BP Pulse Ox 98.9 F 82 18 143/92 99 12/16/20 09:50 12/16/20 09:50 12/16/20 09:50 12/16/20 09:50 12/16/20 09:50 Results - Labs 12/16/20 09:55 Assessment and Plan - Patient Problems (1) Excessive and frequent menstruation with irregular cycle Status: Acute (2) Thickened endometrium Status: Acute
[2020-12-23] MEDS ORDERED: BACTERIOSTATIC SODIUM CHLORIDE 0.9% 30 ML VIAL INFILTRATI ONE (06:19)
[2020-12-23] MEDS ORDERED: LACTATED RINGERS 1,000 ML IV SCH (06:30)
--- NOTE | 2020-12-23 07:04 | Anesthesia Day of Surgery ---
Anesthesia Day of Surgery - Day of Surgery Patient Examined: Yes Patient H&P Reviewed: Yes Patient is NPO: Yes
[2020-12-23] MEDS ORDERED: HYDROmorphone 1 MG/1 ML INJ IV PRN ×2 (07:05)
[2020-12-23] MEDS ORDERED: ONDANSETRON 4 MG/2 ML INJ IV PRN (07:05)
--- NOTE | 2020-12-23 07:05 | Anesthesia Consultation ---
Anesthesia Consult and Med Hx Date of service: 12/23/20 - Airway Anesthetic Teeth Evaluation: Chipped ROM Head & Neck: Adequate Mental/Hyoid Distance: Adequate Mallampati Class: Class II Intubation Access Assessment: Good - Pre-Operative Health Status ASA Pre-Surgery Classification: ASA2 Proposed Anesthetic Plan: General - Pulmonary Hx Asthma: Yes (WAS DX 15 YEARS AGO, BUT NO PROBLEMS NOW) Hx Respiratory Symptoms: No (+2FS) - Cardiovascular System Hx Hypertension: No - Gastrointestinal Hx Gastroesophageal Reflux Disease: No - Endocrine Hx Renal Disease: No Hx Hyperthyroidism: Yes (DX 5 YEARS AGO, BUT "IT CORRECTED ITSELF") - Hematic Hx Anemia: Yes - Other Systems Hx Alcohol Use: No Hx Substance Use: No Hx Cancer: No Hx Obesity: Yes
[2020-12-23] MEDS ORDERED: LIDOCAINE MPF (2%) 20 MG/1 ML VIAL 5 ML ONE (07:13)
[2020-12-23] MEDS ORDERED: propofoL 200 MG/20 ML VIAL IV ONE (07:13)
[2020-12-23] MEDS ORDERED: MIDAZOLAM 2 MG/2 ML INJ ONE (07:21)
[2020-12-23] MEDS ORDERED: FAMOTIDINE 20 MG/2 ML INJ IV ONE (07:21)
[2020-12-23] MEDS ORDERED: ONDANSETRON 4 MG/2 ML INJ ONE (08:09)
[2020-12-23] MEDS ORDERED: SODIUM CHLORIDE 0.9% IRRIG SOLN 2000 ML IR ONE (08:15)
--- NOTE | 2020-12-23 08:40 | Post Operative Note ---
Pre-op diagnosis: Excessive and frequent menstruation, thickened endometrium Post-op diagnosis: same Findings: thickened endometrium Procedure: hysteroscopy D&C Anesthesia: MAC Surgeon: LEO SOLORZANO Estimated blood loss: minimal Pathology: list (endometrial tissue) Specimen disposition: to lab Condition: stable Disposition: PACU
--- NOTE | 2020-12-23 08:46 | Discharge Summary ---
Providers - Providers Date of discharge: 12/23/20 Attending physician: LEO SOLORZANO Primary care physician: MARGIE LEVY Hospitalization Condition: Good Procedures: Hysteroscopy D&C Hospital course: Normal Disposition: DC-01 TO HOME OR SELFCARE Final Discharge Diagnosis (Prints w/discharge instructions): s/p hysteroscopy D&C - Discharge Diagnoses (1) Excessive and frequent menstruation with irregular cycle Status: Resolved (2) Thickened endometrium Status: Resolved Core Measure Documentation - Palliative Care Palliative Care/ Comfort Measures: Not Applicable - Core Measures Any of the following diagnoses?: none Exam - Constitutional Vitals: Temp Pulse Resp BP Pulse Ox 98.2 F 74 16 128/88 99 12/23/20 06:15 12/23/20 06:15 12/23/20 06:15 12/23/20 06:15 12/23/20 06:15 General appearance: Present: no acute distress - Respiratory Respiratory effort: normal - Cardiovascular Rhythm: regular - Psychiatric Psychiatric: appropriate mood/affect, intact judgment & insight, memory intact, cooperative - Neurologic Neurologic: CNII-XII intact Plan Activity: other (No sex x2 weeks, no driving for 24hours, ambulate on your property ~1miole a day) Weight Bearing Status: Full Weight Bearing Diet: regular Special Instructions: no heavy lifting (greater than 15lbs) Follow up with: MARGIE LEVY MD [Primary Care Provider] - 7 Days LEO SOLORZANO MD [Staff Physician] - (As scheduled) Prescriptions: Ibuprofen [Motrin 800 MG tab] 800 mg PO Q8HR PRN #30 tablet PRN Reason: Pain, Moderate (4-6) oxyCODONE /ACETAMINOPHEN [Percocet 5/325] 1 tab PO Q6HR PRN #7 tablet PRN Reason: Pain
--- NOTE | 2020-12-23 10:03 | Operative Report ---
Operative Report Operative Report: Date: 12/23/2020 PREOPERATIVE DIAGNOSES: 1. Abnormal uterine bleeding 2. Thickened endometrium POSTOPERATIVE DIAGNOSES: 1. Normal uterine bleed 2. Thickened endometrium PROCEDURE PERFORMED: 1. Hysteroscopy. 2. Dilation and curettage (D&C) ANESTHESIA: General ESTIMATED BLOOD LOSS: Less than minimal cc. INDICATIONS: This is a [age]-year-old female that presents above diagnosis. PROCEDURE: The patient was seen in the preoperative suite. Expected procedure and postoperative course discussed with her. She was taken to the operative suite where general was performed. She was placed in a dorsal lithotomy position. A bimanual exam was done, the uterus was found to be 8 weeks. She was prepped and draped in the normal sterile fashion. Timeout was performed. Her bladder was drained with the red [place] catheter which produced approximately 50 cc of clear yellow urine. The cervix and vagina were grossly normal with no obvious masses or deformities. A bivalve operative speculum was placed in the vagina and the anterior lip of the cervix was grasped with the single-tooth tenaculum. The uterus was sounded to ~8 cm. The cervix was progressively dilated to allow the diagnostic hysteroscope. Under direct visualization, the ostia were within normal limits. The endometrial lining appeared thickened, however, there was no obvious evidence of malignancy. The hysteroscope was removed and a small sharp curette was placed intrauterine very carefully using anterior wall for guidance. Endometrial curettings were obtained. The endometrial sampling was placed on Telfa pad and sent to Pathology for evaluation, permanent. The hysteroscope was introduced again, no evidence of perforation was noted. At this point procedure was ended. The single-tooth tenaculum and speculum were removed. The cervix was found to be hemostatic. Counts were correct. Patient was taken to the PACU stable. Distention fluid: Normal saline Deficit: 0 mL
[2020-12-23 10:36] VITALS: BP 133/87
--- NOTE | 2020-12-23 15:20 | Post Anesthesia Evaluation ---
- Post Anesthesia Evaluation Patient Participated: Yes Airway Patent: Yes Stable Respiratory Function: Yes Nausea/Vomiting: No Temp > 96.8F: Yes Pain Manageable: Yes Adequeate Hydration: Yes Anesthesia Complications: No Block Receding Appropriately: Not Applicable Patient on Ventilator: No
== END 2020-12-23 09:45 | disposition home or self-care (01) ==
LOC: OR 05:50
PROVIDERS: ATTEND Obstetrics & Gynecology
DX: N93.8 Other specified abnormal uterine and vaginal bleeding (principal); N85.8 Other specified noninflammatory disorders of uterus; Z20.822 Contact with and (suspected) exposure to COVID-19; J45.909 Unspecified asthma, uncomplicated; E66.9 Obesity, unspecified; E05.90 Thyrotoxicosis, unspecified without thyrotoxic crisis or storm; D64.9 Anemia, unspecified; Z79.899 Other long term (current) drug therapy; Z98.890 Other specified postprocedural states; Z68.36 Body mass index [BMI] 36.0-36.9, adult
CPT/HCPCS: 36415; 58558; 81025; 85027; 88305; A4217; J1170; J2250; J2405; J2704; J7120; U0003